=== PATIENT | male | born 1975 | race Caucasian/White ===

== ENCOUNTER 2019-08-07 11:32 | Emergency (ER) | payer BC, OTHER ==
[~2019-08-07] VITALS: Ht 177.8 cm; Wt 80.9 kg
--- NOTE | 2019-08-07 11:51 | NUR ---
THIS IS A 44 YO M W/ C/O LEFT THIGH PAIN AND SWELLING X2 WEEKS. DENIES INJURY. DENIES CP/SOB. DENIES PAIN W/ URINATION. RESP EVEN AND UNLABORED. PT IS TACHYCARDIC. ALL OTHER VS WDL. HO JOHNSON IN ROOM. PT IS RESTING ON GURNEY W/ FAMILY AT BEDSIDE AND CALL LIGHT IN REACH. DENIES FURTHER NEEDS AT THIS TIME. AWAITING ORDERS.
--- NOTE | 2019-08-07 11:54 | NUR ---
PT LEGS ELEVATED.
[2019-08-07 12:58] VITALS: BP 126/76
--- NOTE | 2019-08-07 12:58 | NUR ---
US IN ROOM.
--- NOTE | 2019-08-07 13:22 | NUR ---
PT RESTING ON Flexion W/ CALL LIGHT IN REACH AWAITING US RESULTS.
--- NOTE | 2019-08-07 13:34 | NUR ---
ALL TESTS RESULTED. PT IS UP FOR RECHECK AT THIS TIME.
--- NOTE | 2019-08-07 14:31 | NUR ---
Patient given discharge instructions and they have confirmed that they understand the instructions. Patient ambulatory w/ crutches.
== END 2019-08-07 14:33 | disposition home or self-care (01) ==
LOC: ED 12:45
DX: S76.112A Strain of left quadriceps muscle, fascia and tendon, initial encounter (principal); E11.9 Type 2 diabetes mellitus without complications; X58.XXXA Exposure to other specified factors, initial encounter; Y93.89 Activity, other specified; Y92.69 Other specified industrial and construction area as the place of occurrence of the external cause; Y99.0 Civilian activity done for income or pay
CPT/HCPCS: 29505; 99284

== ENCOUNTER 2019-08-16 18:33 | Inpatient (IN) | payer OTHER ==
[~2019-08-16] VITALS: Ht 177.8 cm; Wt 81.4 kg
--- NOTE | 2019-08-16 19:10 | NUR ---
THIGH ABSCESS X3 WKS, SENT BY DR VELASQUEZ. LABS AND IMAGING DONE TODAY SHOWING ABNORMALITIES, STS SUPPOSED TO BE ADMITTED
[2019-08-16] MEDS ORDERED: PIPERACILLIN/TAZO/PMX 3.375GM 50 ML ONE (19:20)
--- NOTE | 2019-08-16 19:22 | NUR ---
labs sent including bc x 2
[2019-08-16] MEDS ORDERED: VANCOMYCIN 1,800 MG in SODIUM CHLORIDE 0.9% 250 ML IV ONE (19:30)
[2019-08-16] MEDS ORDERED: SODIUM CHLORIDE 0.9%, 500ML IVBOLUS ONE (19:30)
[2019-08-16] MEDS ORDERED: VANCOMYCIN PER PHARMACY MC PRN ×2 (19:30→20:00)
[2019-08-16] MEDS ORDERED: PIPERACILLIN/TAZO/PMX 3.375GM 50 ML IV ONE (19:30)
[2019-08-16] MEDS ORDERED: ONDANSETRON ODT 4 MG PO PRN (20:00)
[2019-08-16] MEDS ORDERED: BISACODYL 10 MG SUPP PR PRN (20:00)
[2019-08-16] MEDS ORDERED: POLYETHYLENE GLYCOL 17 GM PACKET PO PRN (20:00)
--- NOTE | 2019-08-16 20:24 | NUR ---
report to jonna zamorano to room with tech
[2019-08-16 20:31] LABS: MEAN CORPUSCULAR HEMOGLOBIN 28.7 pg (27.5-34.5); MEAN CORPUSCULAR HGB CONC 33.1 g/dL (33.2-36.2); MEAN CORPUSCULAR VOLUME 86.8 fL (81-97); PLATELET COUNT 575 x10^3/uL (130-400); RED BLOOD COUNT 4.54 x10^6/uL (4.38-5.82); RED CELL DISTRIBUTION WIDTH 12.9 % (9.4-14.8)
[2019-08-16 20:41] LABS: ALBUMIN 2.5 g/dL (3.4-5.0); ANION GAP 13 mmol/L (5-15); CALCIUM 8.2 mg/dL (8.5-10.1); CHLORIDE 101 mmol/L (98-107)
[2019-08-16 20:44] LABS: ALANINE AMINOTRANSFERASE 13 U/L (12-78); ALKALINE PHOSPHATASE 84 U/L (45-117); BILIRUBIN,TOTAL 0.5 mg/dL (0.2-1.0); CREATININE 0.81 mg/dL (0.7-1.3); TOTAL PROTEIN 6.5 g/dL (6.4-8.2)
[2019-08-16 20:50] LABS: BASOPHILS # (AUTO) 0.01 x10^3/uL (0-0.1); BASOPHILS % (AUTO) 0 % (0-1); EOSINOPHILS # (AUTO) 0.02 x10^3/uL (0-0.4); EOSINOPHILS % (AUTO) 0 % (1-7); LYMPHOCYTES # (AUTO) 1.75 x10^3/uL (1-3.4); LYMPHOCYTES % (AUTO) 9 % (22-44); MD SCAN; MONOCYTES # (AUTO) 1.98 x10^3/uL (0.2-0.8); MONOCYTES % (AUTO) 10 % (2-9); NEUTROPHILS # (AUTO) 16.74 x10^3/uL (1.8-6.8); NEUTROPHILS % (AUTO) 82 % (42-75)
[2019-08-16] MEDS: HEPARIN 5,000 UNITS/ML, 1ML SQ SCH (21:15)
[2019-08-16] MEDS: SODIUM CHLORIDE 0.9% 1,000 ML IV SCH ×2 (21:15→22:03)
[2019-08-16] MEDS: PIPERACILLIN/TAZO/PMX 3.375GM 50 ML IV SCH (22:04)
[2019-08-16] MEDS: morphine SULFATE 10 MG/ML, 1ML IVPush PRN (22:10)
[2019-08-16] MEDS: INSULIN LISPRO 100 UNITS/ML, PEN SQ-INSULIN SCH (22:54)
[2019-08-16] MEDS ORDERED: PHARMACOKINETIC MONITORING MC PRN (23:00)
[2019-08-16] MEDS ORDERED: PHARMACOKINETIC CONSULTATION MC ONE (23:00)
[2019-08-16 23:02] VITALS: BP 145/88
[2019-08-17 02:46] VITALS: BP 144/83
[2019-08-17] MEDS: morphine SULFATE 10 MG/ML, 1ML IVPush PRN ×3 (02:57→15:44)
[2019-08-17] MEDS: PIPERACILLIN/TAZO/PMX 3.375GM 50 ML IV SCH ×4 (04:27→22:12)
[2019-08-17] MEDS: HEPARIN 5,000 UNITS/ML, 1ML SQ SCH ×3 (04:28→20:09)
[2019-08-17 05:40] LABS: MEAN CORPUSCULAR HEMOGLOBIN 28.8 pg (27.5-34.5); MEAN CORPUSCULAR HGB CONC 33.2 g/dL (33.2-36.2); MEAN CORPUSCULAR VOLUME 86.8 fL (81-97); MEAN PLATELET VOLUME 7.9 fL (7.4-10.4); PLATELET COUNT 521 x10^3/uL (130-400); RED BLOOD COUNT 4.44 x10^6/uL (4.38-5.82); RED CELL DISTRIBUTION WIDTH 12.6 % (9.4-14.8)
[2019-08-17 05:50] LABS: ANION GAP 16 mmol/L (5-15); CALCIUM 8.5 mg/dL (8.5-10.1); CHLORIDE 103 mmol/L (98-107); CREATININE 0.74 mg/dL (0.7-1.3)
[2019-08-17 05:53] LABS: MD YES
[2019-08-17 05:54] LABS: <RBC MORPHOLOGY> NORMAL; BAND#(MANUAL) 0.88 x10^3/uL; BANDS%(MANUAL) 4 % (0-7); EOS#(MANUAL) 0.44 x10^3/uL (0.0-0.4); EOS% (MANUAL) 2 % (1-7); LYMPH#(MANUAL) 1.54 x10^3/uL (1-3.4); LYMPHS% (MANUAL) 7 % (22-44); MONOS#(MANUAL) 1.98 x10^3/uL (0.3-2.7); MONOS% (MANUAL) 9 % (2-9); SEG#(MANUAL) 17.16 x10^3/uL (1.8-6.8); SEGS% (MANUAL) 78 % (42-75)
[2019-08-17 05:55] LABS: <PLATELET ESTIMATE> INCREASED; <PLT MORPHOLOGY> NORMAL PLT MORPH
[2019-08-17] MEDS: SODIUM CHLORIDE 0.9% 1,000 ML IV SCH ×2 (06:14→15:43)
[2019-08-17] MEDS ORDERED: ONDANSETRON 2MG/ML, 2ML IVPush PRN (08:00)
[2019-08-17] MEDS: SENNA/DOCUSATE TABLET PO SCH (08:32)
[2019-08-17] MEDS: VANCOMYCIN 1,600 MG in SODIUM CHLORIDE 0.9% 250 ML IV SCH ×2 (08:35→20:09)
[2019-08-17] MEDS: INSULIN LISPRO 100 UNITS/ML, PEN SQ-INSULIN SCH ×4 (08:40→20:40)
[2019-08-17] MEDS ORDERED: OXYcodone 5 MG/5 ML ORAL.SOL UDC ONE (10:57)
[2019-08-17] MEDS ORDERED: FENTANYL PF 100 MCG/2ML ONE (10:57)
[2019-08-17] MEDS: FENTANYL PF 100 MCG/2ML IV PRN ×2 (10:58→11:05)
[2019-08-17] MEDS ORDERED: ONDANSETRON 2MG/ML, 2ML IV PRN (11:00)
[2019-08-17] MEDS ORDERED: ONDANSETRON ODT 8 MG PO PRN (11:00)
[2019-08-17] MEDS ORDERED: ACETAMINOPHEN 325 MG TABLET PO PRN (11:00)
[2019-08-17] MEDS ORDERED: HYDROmorphone 2 MG/ML, 1ML IVPush PRN (11:00)
[2019-08-17] MEDS ORDERED: DIAZEPAM 5 MG/ML, 2ML IVPush PRN (11:00)
[2019-08-17] MEDS ORDERED: hydrALAzine 20 MG/ML, 1ML IV PRN (11:00)
[2019-08-17] MEDS ORDERED: HALOPERIDOL 5 MG/ML IV PRN (11:00)
[2019-08-17] MEDS ORDERED: LABETALOL 5MG/ML, 20ML IV PRN (11:00)
[2019-08-17] MEDS ORDERED: ALBUTEROL SULFATE 2.5 MG/3 ML NPPB PRN (11:00)
[2019-08-17] MEDS ORDERED: PROMETHAZINE 25 MG/ML, 1ML IV PRN (11:00)
[2019-08-17] MEDS ORDERED: MEPERIDINE/PF 25MG/ML,1ML IVPush PRN (11:00)
[2019-08-17] MEDS ORDERED: EPHEDRINE 50 MG/ML, 1ML IVPush PRN (11:00)
[2019-08-17] MEDS ORDERED: MIDAZOLAM 1 MG/ML, 2ML IV PRN (11:00)
[2019-08-17] MEDS ORDERED: OXYcodone 5 MG/5 ML ORAL.SOL UDC PO PRN (11:00)
[2019-08-17] MEDS ORDERED: PROMETHAZINE 12.5 MG SUPP PR PRN (11:00)
[2019-08-17] MEDS ORDERED: HYDROmorphone 1 MG/ML, 1ML INJ ONE (11:06)
[2019-08-17 12:11] VITALS: BP 135/84
[2019-08-17 19:13] VITALS: BP 144/82
[2019-08-17] MEDS ORDERED: INSULIN GLARGINE 100 UNITS/ML, PEN SQ-INSULIN SCH (21:00)
[2019-08-18 00:50] VITALS: BP 151/76
[2019-08-18] MEDS: SODIUM CHLORIDE 0.9% 1,000 ML IV SCH (00:53)
[2019-08-18] MEDS: HEPARIN 5,000 UNITS/ML, 1ML SQ SCH (04:00)
[2019-08-18] MEDS: PIPERACILLIN/TAZO/PMX 3.375GM 50 ML IV SCH ×4 (04:01→22:08)
[2019-08-18 06:38] LABS: MEAN CORPUSCULAR HEMOGLOBIN 28.9 pg (27.5-34.5); MEAN CORPUSCULAR VOLUME 87.5 fL (81-97); MEAN PLATELET VOLUME 8.2 fL (7.4-10.4); PLATELET COUNT 514 x10^3/uL (130-400); RED BLOOD COUNT 4.43 x10^6/uL (4.38-5.82); RED CELL DISTRIBUTION WIDTH 12.7 % (9.4-14.8)
[2019-08-18 06:49] LABS: ALBUMIN 2.3 g/dL (3.4-5.0); CALCIUM 8.7 mg/dL (8.5-10.1); CHLORIDE 103 mmol/L (98-107)
[2019-08-18 06:55] LABS: ALANINE AMINOTRANSFERASE 12 U/L (12-78); ALKALINE PHOSPHATASE 89 U/L (45-117); ANION GAP 13 mmol/L (5-15); CREATININE 0.82 mg/dL (0.7-1.3); TOTAL PROTEIN 6.8 g/dL (6.4-8.2)
[2019-08-18] MEDS: ACETAMINOPHEN 325 MG TABLET PO PRN ×3 (07:24→18:35)
[2019-08-18] MEDS: VANCOMYCIN 1,600 MG in SODIUM CHLORIDE 0.9% 250 ML IV SCH ×2 (07:24→20:07)
[2019-08-18] MEDS: SENNA/DOCUSATE TABLET PO SCH (07:26)
[2019-08-18 07:29] LABS: BASOPHILS # (AUTO) 0.05 x10^3/uL (0-0.1); BASOPHILS % (AUTO) 0 % (0-1); EOSINOPHILS # (AUTO) 0.02 x10^3/uL (0-0.4); EOSINOPHILS % (AUTO) 0 % (1-7); LYMPHOCYTES # (AUTO) 1.38 x10^3/uL (1-3.4); LYMPHOCYTES % (AUTO) 7 % (22-44); MD SCAN; MONOCYTES % (AUTO) 4 % (2-9); NEUTROPHILS # (AUTO) 18.89 x10^3/uL (1.8-6.8); NEUTROPHILS % (AUTO) 89 % (42-75)
[2019-08-18] MEDS: INSULIN LISPRO 100 UNITS/ML, PEN SQ-INSULIN SCH ×4 (07:35→20:07)
[2019-08-18 08:00] VITALS: BP 150/51
[2019-08-18] MEDS ORDERED: INSULIN GLARGINE 100 UNITS/ML, PEN SQ-INSULIN SCH ×2 (09:00→21:00)
[2019-08-18] MEDS: LISINOPRIL 10 MG TABLET PO SCH ×2 (09:35→20:11)
[2019-08-18] MEDS: ENOXAPARIN 40 MG/0.4 ML SQ SCH (09:35)
[2019-08-18] MEDS: CARVEDILOL 12.5 MG TABLET PO SCH ×2 (09:35→18:28)
[2019-08-18 16:08] VITALS: BP 118/75
[2019-08-18 19:47] VITALS: BP 124/69
[2019-08-18] MEDS ORDERED: SODIUM CHLORIDE 0.9% 1,000 ML IV SCH (19:50)
[2019-08-19 00:15] VITALS: BP 113/70
[2019-08-19] MEDS: PIPERACILLIN/TAZO/PMX 3.375GM 50 ML IV SCH ×2 (04:10→10:11)
[2019-08-19] MEDS: ACETAMINOPHEN 325 MG TABLET PO PRN ×4 (04:19→19:31)
[2019-08-19] MEDS: CARVEDILOL 12.5 MG TABLET PO SCH ×2 (05:45→17:14)
[2019-08-19 07:41] VITALS: BP 108/64
[2019-08-19] MEDS: INSULIN LISPRO 100 UNITS/ML, PEN SQ-INSULIN SCH ×4 (07:47→20:22)
[2019-08-19] MEDS: VANCOMYCIN 1,600 MG in SODIUM CHLORIDE 0.9% 250 ML IV SCH ×2 (07:47→08:16)
[2019-08-19] MEDS: ENOXAPARIN 40 MG/0.4 ML SQ SCH ×2 (07:47→08:15)
[2019-08-19] MEDS: SENNA/DOCUSATE TABLET PO SCH (07:48)
[2019-08-19] MEDS: INSULIN GLARGINE 100 UNITS/ML, PEN SQ-INSULIN SCH ×2 (07:48→20:21)
[2019-08-19] MEDS: LISINOPRIL 10 MG TABLET PO SCH ×2 (07:48→09:00)
[2019-08-19 08:20] LABS: ALANINE AMINOTRANSFERASE 11 U/L (12-78); ANION GAP 5 mmol/L (5-15); CALCIUM 8.3 mg/dL (8.5-10.1); CHLORIDE 106 mmol/L (98-107); CREATININE 0.63 mg/dL (0.7-1.3)
[2019-08-19 08:22] LABS: ALKALINE PHOSPHATASE 72 U/L (45-117); BILIRUBIN,TOTAL 0.5 mg/dL (0.2-1.0); TOTAL PROTEIN 6.2 g/dL (6.4-8.2); VANCOMYCIN,TROUGH 8.3 mcg/mL (5.0-10.0)
[2019-08-19 08:27] LABS: MEAN CORPUSCULAR HEMOGLOBIN 28.7 pg (27.5-34.5); MEAN CORPUSCULAR HGB CONC 33.3 g/dL (33.2-36.2); MEAN CORPUSCULAR VOLUME 86.2 fL (81-97); MEAN PLATELET VOLUME 7.5 fL (7.4-10.4); PLATELET COUNT 563 x10^3/uL (130-400); RED BLOOD COUNT 4.31 x10^6/uL (4.38-5.82); RED CELL DISTRIBUTION WIDTH 12.7 % (9.4-14.8)
[2019-08-19 10:06] LABS: BASOPHILS % (AUTO) 0 % (0-1); EOSINOPHILS % (AUTO) 1 % (1-7); LYMPHOCYTES # (AUTO) 1.31 x10^3/uL (1-3.4); LYMPHOCYTES % (AUTO) 10 % (22-44); MD SCAN; MONOCYTES # (AUTO) 0.59 x10^3/uL (0.2-0.8); MONOCYTES % (AUTO) 5 % (2-9); NEUTROPHILS # (AUTO) 10.72 x10^3/uL (1.8-6.8); NEUTROPHILS % (AUTO) 84 % (42-75)
[2019-08-19] MEDS: CEFAZOLIN 2,000 MG in SODIUM CHLORIDE 0.9% 50 ML IV SCH ×2 (13:14→21:08)
[2019-08-19 14:34] VITALS: BP 116/73
[2019-08-19] MEDS ORDERED: VANCOMYCIN 1,500 MG in SODIUM CHLORIDE 0.9% 250 ML IV SCH (17:00)
[2019-08-19 19:18] VITALS: BP 123/76
[2019-08-19] MEDS ORDERED: SODIUM CHLORIDE 0.9% 1,000 ML IV SCH (19:50)
[2019-08-19] MEDS ORDERED: PNEUMOC 13-VALENT VACC, 0.5 ML IM-VACC ONE (20:00)
[2019-08-19] MEDS ORDERED: FLU VACC QS2019-20 36MOS UP/PF 0.5 ML IM-VACC ONE (20:00)
[2019-08-20 01:45] VITALS: BP 115/71
[2019-08-20] MEDS: ACETAMINOPHEN 325 MG TABLET PO PRN ×2 (03:17→16:38)
[2019-08-20] MEDS: CARVEDILOL 12.5 MG TABLET PO SCH (05:21)
[2019-08-20] MEDS: CEFAZOLIN 2,000 MG in SODIUM CHLORIDE 0.9% 50 ML IV SCH ×3 (05:21→20:42)
[2019-08-20 06:27] LABS: BASOPHILS % (AUTO) 0 % (0-1); EOSINOPHILS # (AUTO) 0.04 x10^3/uL (0-0.4); EOSINOPHILS % (AUTO) 0 % (1-7); LYMPHOCYTES # (AUTO) 1.85 x10^3/uL (1-3.4); LYMPHOCYTES % (AUTO) 17 % (22-44); MD NO; MEAN CORPUSCULAR HEMOGLOBIN 28.6 pg (27.5-34.5); MEAN CORPUSCULAR HGB CONC 33.5 g/dL (33.2-36.2); MEAN CORPUSCULAR VOLUME 85.2 fL (81-97); MEAN PLATELET VOLUME 7.8 fL (7.4-10.4); MONOCYTES # (AUTO) 0.86 x10^3/uL (0.2-0.8); MONOCYTES % (AUTO) 8 % (2-9); NEUTROPHILS # (AUTO) 8.07 x10^3/uL (1.8-6.8); NEUTROPHILS % (AUTO) 75 % (42-75); PLATELET COUNT 550 x10^3/uL (130-400); RED BLOOD COUNT 4.22 x10^6/uL (4.38-5.82); RED CELL DISTRIBUTION WIDTH 12.8 % (9.4-14.8)
[2019-08-20 06:30] LABS: ALANINE AMINOTRANSFERASE 11 U/L (12-78); ANION GAP 6 mmol/L (5-15); CALCIUM 8.2 mg/dL (8.5-10.1); CHLORIDE 108 mmol/L (98-107); CREATININE 0.59 mg/dL (0.7-1.3)
[2019-08-20 06:37] LABS: ALKALINE PHOSPHATASE 67 U/L (45-117); BILIRUBIN,TOTAL 0.2 mg/dL (0.2-1.0); TOTAL PROTEIN 6.1 g/dL (6.4-8.2)
[2019-08-20 06:57] LABS: HCT (SEDRATE) 35.9 % (39.2-51.8)
[2019-08-20] MEDS: INSULIN LISPRO 100 UNITS/ML, PEN SQ-INSULIN SCH ×4 (07:00→20:40)
[2019-08-20] MEDS ORDERED: POTASSIUM CHLORIDE 40 MEQ in SODIUM CHLORIDE 0.9% 500 ML IV ONE (07:30)
[2019-08-20 07:41] VITALS: BP 110/67
[2019-08-20] MEDS ORDERED: POTASSIUM CHLORIDE 20 MEQ TAB.ER.PRT PO SCH (08:00)
[2019-08-20] MEDS: ENOXAPARIN 40 MG/0.4 ML SQ SCH (08:15)
[2019-08-20] MEDS: POTASSIUM CHLORIDE 20 MEQ TAB.ER.PRT PO SCH ×2 (08:15→16:38)
[2019-08-20] MEDS: LISINOPRIL 10 MG TABLET PO SCH (08:16)
[2019-08-20] MEDS: SENNA/DOCUSATE TABLET PO SCH (08:17)
[2019-08-20] MEDS: INSULIN GLARGINE 100 UNITS/ML, PEN SQ-INSULIN SCH ×2 (08:17→20:40)
[2019-08-20] MEDS: morphine SULFATE 10 MG/ML, 1ML IVPush PRN (11:28)
[2019-08-20 13:55] VITALS: BP 141/89
[2019-08-20] MEDS: CARVEDILOL 6.25 MG TABLET PO SCH (18:21)
[2019-08-20 19:47] VITALS: BP 124/78
[2019-08-21 00:55] VITALS: BP 147/88
[2019-08-21] MEDS: ACETAMINOPHEN 325 MG TABLET PO PRN ×4 (01:03→23:04)
[2019-08-21] MEDS: CEFAZOLIN 2,000 MG in SODIUM CHLORIDE 0.9% 50 ML IV SCH ×3 (05:20→20:37)
[2019-08-21] MEDS: CARVEDILOL 6.25 MG TABLET PO SCH ×2 (05:21→17:15)
[2019-08-21 06:16] LABS: BASOPHILS # (AUTO) 0.03 x10^3/uL (0-0.1); BASOPHILS % (AUTO) 0 % (0-1); EOSINOPHILS # (AUTO) 0.29 x10^3/uL (0-0.4); EOSINOPHILS % (AUTO) 3 % (1-7); LYMPHOCYTES # (AUTO) 2.07 x10^3/uL (1-3.4); LYMPHOCYTES % (AUTO) 19 % (22-44); MD NO; MEAN CORPUSCULAR HEMOGLOBIN 28.4 pg (27.5-34.5); MEAN CORPUSCULAR HGB CONC 32.9 g/dL (33.2-36.2); MEAN CORPUSCULAR VOLUME 86.3 fL (81-97); MEAN PLATELET VOLUME 7.8 fL (7.4-10.4); MONOCYTES # (AUTO) 0.59 x10^3/uL (0.2-0.8); MONOCYTES % (AUTO) 6 % (2-9); NEUTROPHILS % (AUTO) 72 % (42-75); PLATELET COUNT 573 x10^3/uL (130-400); RED BLOOD COUNT 4.34 x10^6/uL (4.38-5.82); RED CELL DISTRIBUTION WIDTH 12.8 % (9.4-14.8)
[2019-08-21 06:24] LABS: ALBUMIN 2.1 g/dL (3.4-5.0); ANION GAP 6 mmol/L (5-15); CALCIUM 8.5 mg/dL (8.5-10.1); CHLORIDE 102 mmol/L (98-107)
[2019-08-21 06:28] LABS: ALANINE AMINOTRANSFERASE 13 U/L (12-78); ALKALINE PHOSPHATASE 74 U/L (45-117); BILIRUBIN,TOTAL 0.2 mg/dL (0.2-1.0); CREATININE 0.73 mg/dL (0.7-1.3); TOTAL PROTEIN 6.2 g/dL (6.4-8.2)
[2019-08-21 07:43] VITALS: BP 117/78
[2019-08-21] MEDS: ENOXAPARIN 40 MG/0.4 ML SQ SCH (07:48)
[2019-08-21] MEDS: INSULIN LISPRO 100 UNITS/ML, PEN SQ-INSULIN SCH ×4 (07:49→21:37)
[2019-08-21] MEDS: SENNA/DOCUSATE TABLET PO SCH (08:45)
[2019-08-21] MEDS: LISINOPRIL 10 MG TABLET PO SCH (08:45)
[2019-08-21] MEDS: INSULIN GLARGINE 100 UNITS/ML, PEN SQ-INSULIN SCH ×2 (08:45→21:38)
[2019-08-21 13:22] VITALS: BP 124/76
[2019-08-21 19:09] VITALS: BP 121/78
[2019-08-22 01:57] VITALS: BP 112/70
[2019-08-22 05:05] VITALS: BP 129/82
[2019-08-22] MEDS: CEFAZOLIN 2,000 MG in SODIUM CHLORIDE 0.9% 50 ML IV SCH ×3 (05:07→22:28)
[2019-08-22] MEDS: CARVEDILOL 6.25 MG TABLET PO SCH ×2 (05:07→19:09)
[2019-08-22] MEDS: ACETAMINOPHEN 325 MG TABLET PO PRN ×4 (05:34→21:41)
[2019-08-22 06:00] LABS: BASOPHILS # (AUTO) 0.04 x10^3/uL (0-0.1); MD NO
[2019-08-22 06:09] LABS: CALCIUM 8.8 mg/dL (8.5-10.1); CHLORIDE 102 mmol/L (98-107)
[2019-08-22 06:21] LABS: ALANINE AMINOTRANSFERASE 15 U/L (12-78); ALBUMIN 2.3 g/dL (3.4-5.0); ALKALINE PHOSPHATASE 75 U/L (45-117); ANION GAP 5 mmol/L (5-15); BILIRUBIN,TOTAL 0.2 mg/dL (0.2-1.0); CREATININE 0.82 mg/dL (0.7-1.3); TOTAL PROTEIN 6.7 g/dL (6.4-8.2)
[2019-08-22 06:32] LABS: BASOPHILS % (AUTO) 0 % (0-1); EOSINOPHILS # (AUTO) 0.26 x10^3/uL (0-0.4); EOSINOPHILS % (AUTO) 3 % (1-7); LYMPHOCYTES % (AUTO) 24 % (22-44); MEAN CORPUSCULAR HEMOGLOBIN 28.4 pg (27.5-34.5); MEAN CORPUSCULAR HGB CONC 32.9 g/dL (33.2-36.2); MEAN CORPUSCULAR VOLUME 86.2 fL (81-97); MEAN PLATELET VOLUME 7.7 fL (7.4-10.4); MONOCYTES # (AUTO) 0.74 x10^3/uL (0.2-0.8); MONOCYTES % (AUTO) 9 % (2-9); NEUTROPHILS # (AUTO) 5.43 x10^3/uL (1.8-6.8); NEUTROPHILS % (AUTO) 64 % (42-75); PLATELET COUNT 634 x10^3/uL (130-400); RED BLOOD COUNT 4.76 x10^6/uL (4.38-5.82); RED CELL DISTRIBUTION WIDTH 13.1 % (9.4-14.8)
[2019-08-22 06:35] LABS: HCT (SEDRATE) 41.1 % (39.2-51.8)
[2019-08-22 08:02] VITALS: BP 119/80
[2019-08-22] MEDS: INSULIN LISPRO 100 UNITS/ML, PEN SQ-INSULIN SCH ×4 (10:44→21:08)
[2019-08-22] MEDS: LISINOPRIL 10 MG TABLET PO SCH (10:45)
[2019-08-22] MEDS: SENNA/DOCUSATE TABLET PO SCH (10:45)
[2019-08-22] MEDS: ENOXAPARIN 40 MG/0.4 ML SQ SCH (10:46)
[2019-08-22] MEDS: INSULIN GLARGINE 100 UNITS/ML, PEN SQ-INSULIN SCH ×2 (10:50→21:08)
[2019-08-22 13:21] VITALS: BP 131/86
[2019-08-22 20:02] VITALS: BP 126/87
[2019-08-23 01:28] VITALS: BP 137/89
[2019-08-23] MEDS: ACETAMINOPHEN 325 MG TABLET PO PRN ×2 (01:42→20:29)
[2019-08-23 04:31] LABS: BASOPHILS # (AUTO) 0.01 x10^3/uL (0-0.1); BASOPHILS % (AUTO) 0 % (0-1); EOSINOPHILS # (AUTO) 0.22 x10^3/uL (0-0.4); EOSINOPHILS % (AUTO) 2 % (1-7); LYMPHOCYTES # (AUTO) 1.88 x10^3/uL (1-3.4); LYMPHOCYTES % (AUTO) 21 % (22-44); MD NO; MEAN CORPUSCULAR HEMOGLOBIN 28.1 pg (27.5-34.5); MEAN CORPUSCULAR HGB CONC 32.7 g/dL (33.2-36.2); MEAN CORPUSCULAR VOLUME 86.2 fL (81-97); MEAN PLATELET VOLUME 7.4 fL (7.4-10.4); MONOCYTES # (AUTO) 0.82 x10^3/uL (0.2-0.8); MONOCYTES % (AUTO) 9 % (2-9); NEUTROPHILS % (AUTO) 68 % (42-75); PLATELET COUNT 622 x10^3/uL (130-400); RED BLOOD COUNT 4.68 x10^6/uL (4.38-5.82)
[2019-08-23 06:02] VITALS: BP 128/86
[2019-08-23] MEDS: CEFAZOLIN 2,000 MG in SODIUM CHLORIDE 0.9% 50 ML IV SCH ×2 (06:03→16:10)
[2019-08-23] MEDS: CARVEDILOL 6.25 MG TABLET PO SCH ×2 (06:03→17:21)
[2019-08-23] MEDS ORDERED: OXYcodone/APAP 5/325MG TABLET PO PRN (08:00)
[2019-08-23] MEDS: INSULIN LISPRO 100 UNITS/ML, PEN SQ-INSULIN SCH ×4 (08:12→21:27)
[2019-08-23] MEDS: SENNA/DOCUSATE TABLET PO SCH (08:14)
[2019-08-23] MEDS: ENOXAPARIN 40 MG/0.4 ML SQ SCH (08:14)
[2019-08-23] MEDS: LISINOPRIL 10 MG TABLET PO SCH (08:14)
[2019-08-23] MEDS: INSULIN GLARGINE 100 UNITS/ML, PEN SQ-INSULIN SCH ×2 (08:17→21:26)
[2019-08-23 14:00] VITALS: BP 124/82
[2019-08-23 19:38] VITALS: BP 147/88
[2019-08-24] MEDS: CEFAZOLIN 2,000 MG in SODIUM CHLORIDE 0.9% 50 ML IV SCH ×2 (00:11→08:14)
[2019-08-24 00:35] VITALS: BP 138/92
[2019-08-24] MEDS: ACETAMINOPHEN 325 MG TABLET PO PRN (00:51)
[2019-08-24 05:45] VITALS: BP 146/88
[2019-08-24] MEDS: CARVEDILOL 6.25 MG TABLET PO SCH (05:46)
[2019-08-24] MEDS: ENOXAPARIN 40 MG/0.4 ML SQ SCH (08:14)
[2019-08-24] MEDS: LISINOPRIL 10 MG TABLET PO SCH (08:15)
[2019-08-24] MEDS: INSULIN LISPRO 100 UNITS/ML, PEN SQ-INSULIN SCH ×2 (08:17→11:41)
[2019-08-24] MEDS: SENNA/DOCUSATE TABLET PO SCH (08:18)
[2019-08-24 08:21] VITALS: BP 104/69
[2019-08-24] MEDS ORDERED: CARV12.52 PO (08:58)
[2019-08-24] MEDS ORDERED: LISI-167 PO (08:58)
[2019-08-24] MEDS ORDERED: INSU100I11 SQ-INSULIN (08:58)
[2019-08-24] MEDS ORDERED: INSU100I13 SQ-INSULIN (08:58)
[2019-08-24] MEDS ORDERED: ERTAPENEM 1 GM in SODIUM CHLORIDE 0.9% 50 ML IV SCH (09:00)
[2019-08-24] MEDS ORDERED: INSULIN GLARGINE 100 UNITS/ML, PEN SQ-INSULIN SCH (09:00)
[2019-08-24] MEDS ORDERED: CARVEDILOL 12.5 MG TABLET PO SCH (18:00)
== END 2019-08-24 12:00 | disposition home or self-care (01) | DRG 872 ==
LOC: ED 20:28 → 3N 20:51
PROVIDERS: ADMIT Internal Medicine; ATTEND Internal Medicine
PROC: 0Y9D0ZZ Drainage of Left Upper Leg, Open Approach (ICD-10-PCS; 2019-08-17)
PROC: 02HV33Z Insertion of Infusion Device into Superior Vena Cava, Percutaneous Approach (ICD-10-PCS; principal; 2019-08-22)
PROC: B5181ZA Fluoroscopy of Superior Vena Cava using Low Osmolar Contrast, Guidance (ICD-10-PCS; 2019-08-22)
PROC: B548ZZA Ultrasonography of Superior Vena Cava, Guidance (ICD-10-PCS; 2019-08-22)
DX: A41.9 Sepsis, unspecified organism (principal); E87.2 Acidosis; L02.415 Cutaneous abscess of right lower limb; E87.1 Hypo-osmolality and hyponatremia; B95.62 Methicillin resistant Staphylococcus aureus infection as the cause of diseases classified elsewhere; E11.65 Type 2 diabetes mellitus with hyperglycemia; E87.6 Hypokalemia; I10 Essential (primary) hypertension; Z79.4 Long term (current) use of insulin; Z91.19 Patient's noncompliance with other medical treatment and regimen
CPT/HCPCS: 36415; 36573; 80048; 80053; 80202; 82962; 83036; 83605; 84145; 85025; 85651; 86140; 87040; 93005; 93306; 96365; 99285; G0378; J0690; J1170; J1335; J1644; J1650; J2405; J2543; J3010; J3370; J3480; Q0162; C1751; J1815; J2270; J7030; J7040; J7050

== ENCOUNTER → 2019-08-16 | Outpatient (CLI) | payer OTHER ==
[~2019-08-16] MED LIST: FENTANYL PF 250 MCG/5ML ONE; GADOTERATE 7.5 MMOL/15 ML SYR ONE; MIDAZOLAM 1 MG/ML, 2ML ONE; ONDANSETRON 2MG/ML, 2ML ONE; PROPOFOL 10 MG/ML, 20ML ONE; ROCURONIUM 10MG/ML,5ML ONE; SUCCINYLCHOLINE 20 MG/ML, 10ML ONE
[2019-08-16 13:39] LABS: MEAN CORPUSCULAR HEMOGLOBIN 28.5 pg (27.5-34.5); MEAN CORPUSCULAR VOLUME 86.3 fL (81-97); MEAN PLATELET VOLUME 7.8 fL (7.4-10.4); PLATELET COUNT 643 x10^3/uL (130-400); RED BLOOD COUNT 5.14 x10^6/uL (4.38-5.82); RED CELL DISTRIBUTION WIDTH 13.1 % (9.4-14.8)
[2019-08-16 13:42] LABS: HCT (SEDRATE) 44.5 % (39.2-51.8)
[2019-08-16 14:04] LABS: BASOPHILS # (AUTO) 0.05 x10^3/uL (0-0.1); BASOPHILS % (AUTO) 0 % (0-1); EOSINOPHILS # (AUTO) 0.02 x10^3/uL (0-0.4); EOSINOPHILS % (AUTO) 0 % (1-7); LYMPHOCYTES % (AUTO) 6 % (22-44); MD SCAN; MONOCYTES # (AUTO) 1.85 x10^3/uL (0.2-0.8); MONOCYTES % (AUTO) 9 % (2-9); NEUTROPHILS # (AUTO) 17.92 x10^3/uL (1.8-6.8); NEUTROPHILS % (AUTO) 85 % (42-75)
== END | disposition home or self-care (01) ==
LOC: RAD 13:18
PROVIDERS: ATTEND Physician Assistant Surgical
DX: R60.0 Localized edema (principal); M25.552 Pain in left hip; E11.9 Type 2 diabetes mellitus without complications; G40.909 Epilepsy, unspecified, not intractable, without status epilepticus
CPT/HCPCS: 36415; 73720; 85025; 85651; 86140; 93971; A9575; 87070; 87075; 87077; 87102; 87147; 87186; 87205; J2250; J2405; J2704; J3010; J0330

== ENCOUNTER 2020-07-24 10:09 | Inpatient (IN) | payer OTHER ==
[~2020-07-24] VITALS: Ht 177.8 cm; Wt 96.1 kg
[~2020-07-24 10:09] MED LIST changes: +CARV12.52 PO; -FENTANYL PF 250 MCG/5ML ONE; -GADOTERATE 7.5 MMOL/15 ML SYR ONE; +INSU100I11 SQ-INSULIN; +INSU100I13 SQ-INSULIN; +LISI-167 PO; -MIDAZOLAM 1 MG/ML, 2ML ONE; -ONDANSETRON 2MG/ML, 2ML ONE; -PROPOFOL 10 MG/ML, 20ML ONE; -ROCURONIUM 10MG/ML,5ML ONE; -SUCCINYLCHOLINE 20 MG/ML, 10ML ONE
--- NOTE | 2020-07-24 10:41 | NUR ---
PT TO XR
[2020-07-24 10:44] LABS: BASOPHILS % (AUTO) 0 % (0-1); EOSINOPHILS % (AUTO) 0 % (1-7); LYMPHOCYTES % (AUTO) 9 % (22-44); MEAN CORPUSCULAR HEMOGLOBIN 28.9 pg (27.5-34.5); MEAN CORPUSCULAR HGB CONC 33.8 g/dL (33.2-36.2); MEAN PLATELET VOLUME 8.8 fL (7.4-10.4); MONOCYTES % (AUTO) 8 % (2-9); NEUTROPHILS % (AUTO) 82 % (42-75); PLATELET COUNT 364 x10^3/uL (130-400); RED BLOOD COUNT 5.35 x10^6/uL (4.38-5.82); RED CELL DISTRIBUTION WIDTH 13.3 % (9.4-14.8)
[2020-07-24 10:56] LABS: ALANINE AMINOTRANSFERASE 17 U/L (12-78); ALBUMIN 3.9 g/dL (3.4-5.0); ANION GAP 10 mmol/L (5-15); CHLORIDE 102 mmol/L (98-107); CREATININE 1.38 mg/dL (0.7-1.3)
[2020-07-24 10:58] LABS: ALKALINE PHOSPHATASE 95 U/L (45-117); BILIRUBIN,TOTAL 0.8 mg/dL (0.2-1.0)
[2020-07-24 11:10] LABS: MD SCAN
[2020-07-24] MEDS ORDERED: SODIUM CHLORIDE FLUSH 10ML SYR IVF ONE (11:30)
[2020-07-24] MEDS ORDERED: AMPICILLIN/SULBACTAM 3 GM in SODIUM CHLORIDE 0.9% 100 ML IV ONE (11:30)
[2020-07-24] MEDS ORDERED: SODIUM CHLORIDE FLUSH 10ML SYR IVF PRN (11:30)
[2020-07-24] MEDS ORDERED: SODIUM CHLORIDE 0.9% 1,000ML IVBOLUS ONE (11:30)
--- NOTE | 2020-07-24 12:23 | NUR ---
attempted to call Dr. Bailon [facility] [phone] for a med list. pt does not know his medications.
[2020-07-24] MEDS: CEFAZOLIN 2,000 MG in SODIUM CHLORIDE 0.9% 50 ML IV SCH ×2 (14:05→21:34)
[2020-07-24 14:44] VITALS: BP 139/88
[2020-07-24] MEDS: SODIUM CHLORIDE 0.9% 1,000 ML IV SCH ×2 (15:16→21:37)
[2020-07-24] MEDS: HEPARIN 5,000 UNITS/ML, 1ML SQ SCH ×2 (15:22→23:11)
[2020-07-24] MEDS: INSULIN LISPRO 100 UNITS/ML, PEN SQ-INSULIN SCH ×2 (18:33→21:36)
[2020-07-24 20:17] VITALS: BP 126/73
[2020-07-24] MEDS: ACETAMINOPHEN 325 MG TABLET PO PRN (20:43)
[2020-07-24] MEDS: INSULIN GLARGINE 100 UNITS/ML, PEN SQ-INSULIN SCH (21:37)
[2020-07-25 01:48] VITALS: BP 119/68
[2020-07-25] MEDS: SODIUM CHLORIDE 0.9% 1,000 ML IV SCH ×2 (04:40→11:49)
[2020-07-25 05:28] LABS: BASOPHILS % (AUTO) 1 % (0-1); EOSINOPHILS % (AUTO) 1 % (1-7); LYMPHOCYTES % (AUTO) 23 % (22-44); MEAN CORPUSCULAR HGB CONC 34.2 g/dL (33.2-36.2); MEAN PLATELET VOLUME 8.7 fL (7.4-10.4); MONOCYTES % (AUTO) 12 % (2-9); NEUTROPHILS % (AUTO) 64 % (42-75); PLATELET COUNT 326 x10^3/uL (130-400); RED BLOOD COUNT 4.69 x10^6/uL (4.38-5.82); RED CELL DISTRIBUTION WIDTH 12.9 % (9.4-14.8)
[2020-07-25 05:29] LABS: MD NO
[2020-07-25 05:45] LABS: ANION GAP 5 mmol/L (5-15); CALCIUM 8.1 mg/dL (8.5-10.1); CHLORIDE 110 mmol/L (98-107); CREATININE 0.79 mg/dL (0.7-1.3)
[2020-07-25] MEDS: HEPARIN 5,000 UNITS/ML, 1ML SQ SCH ×3 (06:43→23:00)
[2020-07-25] MEDS: CEFAZOLIN 2,000 MG in SODIUM CHLORIDE 0.9% 50 ML IV SCH ×2 (06:43→14:24)
[2020-07-25] MEDS: INSULIN LISPRO 100 UNITS/ML, PEN SQ-INSULIN SCH ×4 (06:43→21:58)
[2020-07-25 07:47] VITALS: BP 135/79
[2020-07-25] MEDS: LISINOPRIL 20 MG TABLET PO SCH (09:28)
[2020-07-25] MEDS: INSULIN GLARGINE 100 UNITS/ML, PEN SQ-INSULIN SCH ×2 (09:29→21:58)
[2020-07-25 13:40] VITALS: BP 118/74
[2020-07-25] MEDS ORDERED: POTASSIUM CHLORIDE 20 MEQ TAB.ER.PRT PO ONE (14:00)
[2020-07-25 20:09] VITALS: BP 124/71
[2020-07-25] MEDS ORDERED: CEFAZOLIN 2,000 MG in DEXTROSE 5% 50 ML IV SCH (22:00)
[2020-07-25] MEDS ORDERED: CEFAZOLIN 2,000 MG in SODIUM CHLORIDE 0.9% 50 ML IV ONE (22:00)
[2020-07-26 01:43] VITALS: BP 119/70
[2020-07-26 05:19] LABS: HCT (SEDRATE) 39.2 % (39.2-51.8)
[2020-07-26 05:25] LABS: BASOPHILS % (AUTO) 1 % (0-1); EOSINOPHILS % (AUTO) 0 % (1-7); LYMPHOCYTES % (AUTO) 21 % (22-44); MEAN CORPUSCULAR HEMOGLOBIN 29.1 pg (27.5-34.5); MEAN CORPUSCULAR HGB CONC 34.4 g/dL (33.2-36.2); MEAN PLATELET VOLUME 8.3 fL (7.4-10.4); MONOCYTES % (AUTO) 11 % (2-9); NEUTROPHILS % (AUTO) 68 % (42-75); PLATELET COUNT 330 x10^3/uL (130-400); RED BLOOD COUNT 4.54 x10^6/uL (4.38-5.82)
[2020-07-26 05:30] LABS: ANION GAP 4 mmol/L (5-15); CALCIUM 8.2 mg/dL (8.5-10.1); CHLORIDE 110 mmol/L (98-107)
[2020-07-26 05:33] LABS: MD NO
[2020-07-26 05:50] LABS: CREATININE 0.81 mg/dL (0.7-1.3)
[2020-07-26] MEDS ORDERED: CEFAZOLIN 2,000 MG in DEXTROSE 5% 50 ML IV SCH (06:00)
[2020-07-26] MEDS: HEPARIN 5,000 UNITS/ML, 1ML SQ SCH ×3 (06:29→22:24)
[2020-07-26] MEDS: CEFAZOLIN PMX 2GM/50ML 50 ML IVPB SCH ×3 (06:29→22:18)
[2020-07-26] MEDS: INSULIN LISPRO 100 UNITS/ML, PEN SQ-INSULIN SCH ×4 (06:35→22:19)
[2020-07-26 08:11] VITALS: BP 104/69
[2020-07-26] MEDS: LISINOPRIL 20 MG TABLET PO SCH (08:29)
[2020-07-26] MEDS: INSULIN GLARGINE 100 UNITS/ML, PEN SQ-INSULIN SCH (09:00)
[2020-07-26] MEDS ORDERED: INSULIN GLARGINE 100 UNITS/ML, PEN SQ-INSULIN SCH (09:30)
[2020-07-26] MEDS ORDERED: INSULIN GLARGINE 100 UNITS/ML, PEN SQ-INSULIN ONE (09:30)
[2020-07-26] MEDS ORDERED: POTASSIUM CHLORIDE 20 MEQ TAB.ER.PRT PO ONE (11:30)
[2020-07-26 12:31] VITALS: BP 129/82
[2020-07-26] MEDS ORDERED: SODIUM CHLORIDE 0.9% 1,000 ML IV SCH (13:30)
[2020-07-26] MEDS: ACETAMINOPHEN 325 MG TABLET PO PRN (15:52)
[2020-07-26 19:14] VITALS: BP 141/80
[2020-07-27 00:23] VITALS: BP 125/76
[2020-07-27 04:53] LABS: BASOPHILS % (AUTO) 0 % (0-1); EOSINOPHILS % (AUTO) 2 % (1-7); LYMPHOCYTES % (AUTO) 26 % (22-44); MD NO; MEAN CORPUSCULAR HEMOGLOBIN 28.9 pg (27.5-34.5); MEAN CORPUSCULAR HGB CONC 33.8 g/dL (33.2-36.2); MEAN PLATELET VOLUME 8.3 fL (7.4-10.4); MONOCYTES % (AUTO) 11 % (2-9); NEUTROPHILS % (AUTO) 61 % (42-75); PLATELET COUNT 345 x10^3/uL (130-400); RED BLOOD COUNT 4.64 x10^6/uL (4.38-5.82)
[2020-07-27 05:04] LABS: CALCIUM 8.4 mg/dL (8.5-10.1); CHLORIDE 108 mmol/L (98-107)
[2020-07-27 05:06] LABS: CREATININE 0.94 mg/dL (0.7-1.3)
[2020-07-27 05:13] LABS: ANION GAP 3 mmol/L (5-15)
[2020-07-27] MEDS: HEPARIN 5,000 UNITS/ML, 1ML SQ SCH ×3 (06:19→22:52)
[2020-07-27] MEDS: CEFAZOLIN PMX 2GM/50ML 50 ML IVPB SCH ×3 (06:19→21:30)
[2020-07-27 06:32] VITALS: BP 121/73
[2020-07-27] MEDS: INSULIN LISPRO 100 UNITS/ML, PEN SQ-INSULIN SCH ×4 (07:26→21:30)
[2020-07-27] MEDS: LISINOPRIL 20 MG TABLET PO SCH (08:25)
[2020-07-27] MEDS ORDERED: INSULIN GLARGINE 100 UNITS/ML, PEN SQ-INSULIN SCH (09:00)
[2020-07-27 12:40] VITALS: BP 123/82
[2020-07-27] MEDS: INSULIN GLARGINE 100 UNITS/ML, PEN SQ-INSULIN SCH (21:29)
[2020-07-27 22:05] VITALS: BP 121/74
[2020-07-28 03:19] VITALS: BP 111/69
[2020-07-28 05:45] LABS: BASOPHILS % (AUTO) 1 % (0-1); EOSINOPHILS % (AUTO) 2 % (1-7); LYMPHOCYTES % (AUTO) 29 % (22-44); MEAN CORPUSCULAR HEMOGLOBIN 29.5 pg (27.5-34.5); MEAN CORPUSCULAR HGB CONC 34.8 g/dL (33.2-36.2); MEAN PLATELET VOLUME 8.5 fL (7.4-10.4); MONOCYTES % (AUTO) 11 % (2-9); NEUTROPHILS % (AUTO) 58 % (42-75); PLATELET COUNT 398 x10^3/uL (130-400); RED BLOOD COUNT 4.69 x10^6/uL (4.38-5.82); RED CELL DISTRIBUTION WIDTH 13.2 % (9.4-14.8)
[2020-07-28 05:46] LABS: MD NO
[2020-07-28] MEDS: CEFAZOLIN PMX 2GM/50ML 50 ML IVPB SCH (05:58)
[2020-07-28 06:01] LABS: C-REACTIVE PROTEIN, QUANT 4.5 mg/dL (0.02-0.49)
[2020-07-28] MEDS: HEPARIN 5,000 UNITS/ML, 1ML SQ SCH (06:26)
[2020-07-28] MEDS: INSULIN LISPRO 100 UNITS/ML, PEN SQ-INSULIN SCH ×2 (06:28→10:49)
[2020-07-28 07:20] VITALS: BP 130/82
[2020-07-28] MEDS: LISINOPRIL 20 MG TABLET PO SCH (08:44)
[2020-07-28] MEDS: INSULIN GLARGINE 100 UNITS/ML, PEN SQ-INSULIN SCH (09:02)
[2020-07-28] MEDS ORDERED: INSU100I13 SQ-INSULIN (10:02)
[2020-07-28] MEDS ORDERED: ONDA4TAB7 PO (10:02)
[2020-07-28] MEDS ORDERED: INSU100I11 SQ-INSULIN (10:02)
[2020-07-28] MEDS ORDERED: HYDR-3241 PO (10:02)
[2020-07-28] MEDS ORDERED: LISI-170 PO (10:02)
[2020-07-28] MEDS ORDERED: AMOX1TAB64 PO (10:38)
== END 2020-07-28 12:45 | disposition home or self-care (01) | DRG 871 ==
LOC: ED 11:33 → EDIP 11:55 → 4NE 14:16 → DCLOUNGE 07-28 12:31
PROVIDERS: ADMIT Hospitalist; ATTEND Internal Medicine
DX: A41.9 Sepsis, unspecified organism (principal); N17.0 Acute kidney failure with tubular necrosis; L03.116 Cellulitis of left lower limb; B95.1 Streptococcus, group B, as the cause of diseases classified elsewhere; B95.61 Methicillin susceptible Staphylococcus aureus infection as the cause of diseases classified elsewhere; E11.65 Type 2 diabetes mellitus with hyperglycemia; I10 Essential (primary) hypertension; M70.42 Prepatellar bursitis, left knee; Z20.822 Contact with and (suspected) exposure to COVID-19; Z79.4 Long term (current) use of insulin; Z79.899 Other long term (current) drug therapy
CPT/HCPCS: 36415; 80048; 80053; 82962; 83036; 83605; 83735; 84443; 85025; 85651; 86140; 87040; 87070; 87077; 87147; 87186; 87205; 96374; 99285; G0378; J0295; J0690; J1644; J1815; J7030

== ENCOUNTER 2021-01-23 11:40 | Inpatient (IN) | payer OTHER ==
[~2021-01-23] VITALS: Ht 172.7 cm; Wt 100.4 kg
[~2021-01-23 11:40] MED LIST changes: +AMOX1TAB64 PO; +HYDR-3241 PO; +LISI-170 PO; +ONDA4TAB7 PO
[2021-01-23] MEDS ORDERED: VANCOMYCIN PER PHARMACY MC ONE (13:00)
[2021-01-23] MEDS ORDERED: SODIUM CHLORIDE 0.9% 1,000ML IVBOLUS ONE (13:00)
[2021-01-23] MEDS ORDERED: LIDOCAINE-MPF 1%, 5ML INFIL ONE (13:00)
[2021-01-23] MEDS ORDERED: PHARMACOKINETIC CONSULTATION MC ONE (13:00)
[2021-01-23] MEDS ORDERED: AMPICILLIN/SULBACTAM 3 GM in SODIUM CHLORIDE 0.9% 100 ML IV ONE (13:00)
[2021-01-23] MEDS ORDERED: LIDOCAINE-MPF 1%, 5ML ONE ×2 (13:15→15:20)
[2021-01-23 13:17] LABS: BASOPHILS % (AUTO) 0 % (0-1); EOSINOPHILS % (AUTO) 0 % (1-7); LYMPHOCYTES % (AUTO) 7 % (22-44); MEAN CORPUSCULAR HEMOGLOBIN 29.2 pg (27.5-34.5); MEAN CORPUSCULAR HGB CONC 34.3 g/dL (33.2-36.2); MEAN PLATELET VOLUME 8.5 fL (7.4-10.4); MONOCYTES % (AUTO) 7 % (2-9); NEUTROPHILS % (AUTO) 86 % (42-75); PLATELET COUNT 363 x10^3/uL (130-400); RED BLOOD COUNT 5.38 x10^6/uL (4.38-5.82); RED CELL DISTRIBUTION WIDTH 13.4 % (9.4-14.8)
[2021-01-23 13:42] LABS: ALBUMIN 3.8 g/dL (3.4-5.0); ANION GAP 5 mmol/L (5-15); CALCIUM 9.1 mg/dL (8.5-10.1); CHLORIDE 101 mmol/L (98-107); CREATININE 1.22 mg/dL (0.7-1.3)
[2021-01-23] MEDS ORDERED: VANCOMYCIN 2,200 MG in SODIUM CHLORIDE 0.9% 500 ML IV ONE (14:00)
--- NOTE | 2021-01-23 14:33 | NUR ---
pt resting in bed. at bedside.
[2021-01-23 17:33] VITALS: BP 126/70
[2021-01-23] MEDS: ACETAMINOPHEN 325 MG TABLET PO PRN (18:18)
[2021-01-23] MEDS ORDERED: VANCOMYCIN PER PHARMACY MC PRN (19:00)
[2021-01-23] MEDS ORDERED: morphine SULFATE 10 MG/ML, 1ML IVPush PRN (19:00)
[2021-01-23] MEDS ORDERED: ONDANSETRON 2MG/ML, 2ML IVPush PRN (19:00)
[2021-01-23] MEDS ORDERED: ACETAMINOPHEN 325 MG TABLET PO PRN (19:00)
[2021-01-23] MEDS ORDERED: HYDROcodone/APAP 5/325 TABLET PO PRN (19:00)
[2021-01-23] MEDS ORDERED: DEXTROSE 4 GM TAB.CHEW PO PRN (19:30)
[2021-01-23] MEDS ORDERED: DEXTROSE 50%, 50ML SYRINGE IVPush PRN (19:30)
[2021-01-23] MEDS ORDERED: GLUCAGON 1 MG IM PRN (19:30)
[2021-01-23] MEDS ORDERED: PHARMACOKINETIC MONITORING MC PRN (19:30)
[2021-01-23] MEDS ORDERED: DIPHTHERIA-TETANUS ADULT 0.5ML IM-VACC ONE (19:30)
[2021-01-23] MEDS: INSULIN LISPRO 100 UNITS/ML, PEN SQ-INSULIN SCH (21:00)
[2021-01-23 21:27] VITALS: BP 144/84
[2021-01-23 22:25] VITALS: BP 131/80
[2021-01-23] MEDS: ENOXAPARIN 40 MG/0.4 ML SQ SCH (22:44)
[2021-01-23] MEDS: SODIUM CHLORIDE 0.9% 1,000 ML IV SCH (22:44)
[2021-01-23] MEDS: AMPICILLIN/SULBACTAM 3 GM in SODIUM CHLORIDE 0.9% 100 ML IV SCH (22:44)
[2021-01-23] MEDS: SODIUM CHLORIDE FLUSH 10ML SYR IVF SCH (22:45)
[2021-01-24 02:20] VITALS: BP 117/73
[2021-01-24] MEDS: VANCOMYCIN 1,900 MG in SODIUM CHLORIDE 0.9% 250 ML IV SCH ×2 (02:26→15:22)
[2021-01-24 04:52] LABS: BASOPHILS % (AUTO) 1 % (0-1); EOSINOPHILS % (AUTO) 0 % (1-7); LYMPHOCYTES % (AUTO) 13 % (22-44); MEAN CORPUSCULAR HEMOGLOBIN 29.2 pg (27.5-34.5); MEAN CORPUSCULAR HGB CONC 34.3 g/dL (33.2-36.2); MEAN PLATELET VOLUME 8.6 fL (7.4-10.4); MONOCYTES % (AUTO) 9 % (2-9); NEUTROPHILS % (AUTO) 77 % (42-75); PLATELET COUNT 329 x10^3/uL (130-400); RED BLOOD COUNT 4.62 x10^6/uL (4.38-5.82); RED CELL DISTRIBUTION WIDTH 13.2 % (9.4-14.8)
[2021-01-24] MEDS: AMPICILLIN/SULBACTAM 3 GM in SODIUM CHLORIDE 0.9% 100 ML IV SCH ×4 (05:02→22:52)
[2021-01-24 05:05] LABS: ALBUMIN 2.8 g/dL (3.4-5.0); ANION GAP 8 mmol/L (5-15); CALCIUM 8.1 mg/dL (8.5-10.1); CHLORIDE 105 mmol/L (98-107)
[2021-01-24 05:10] LABS: ALANINE AMINOTRANSFERASE 16 U/L (12-78); ALKALINE PHOSPHATASE 69 U/L (45-117); BILIRUBIN,TOTAL 0.9 mg/dL (0.2-1.0); CREATININE 0.89 mg/dL (0.7-1.3); TOTAL PROTEIN 6.8 g/dL (6.4-8.2)
[2021-01-24 05:25] LABS: MICROSCOPIC AUTO
[2021-01-24 07:14] VITALS: BP 108/64
[2021-01-24] MEDS: INSULIN LISPRO 100 UNITS/ML, PEN SQ-INSULIN SCH ×4 (07:42→21:38)
[2021-01-24] MEDS: SODIUM CHLORIDE 0.9% 1,000 ML IV SCH ×2 (07:42→16:36)
[2021-01-24] MEDS: SODIUM CHLORIDE FLUSH 10ML SYR IVF SCH ×2 (07:44→21:37)
[2021-01-24 12:41] VITALS: BP 116/63
[2021-01-24 19:05] VITALS: BP 110/66
[2021-01-24] MEDS: ACETAMINOPHEN 325 MG TABLET PO PRN (21:38)
[2021-01-24] MEDS: ENOXAPARIN 40 MG/0.4 ML SQ SCH (21:38)
[2021-01-25 00:16] VITALS: BP 114/68
[2021-01-25] MEDS: VANCOMYCIN 1,900 MG in SODIUM CHLORIDE 0.9% 250 ML IV SCH ×2 (02:23→13:31)
[2021-01-25] MEDS: SODIUM CHLORIDE 0.9% 1,000 ML IV SCH (04:48)
[2021-01-25] MEDS: AMPICILLIN/SULBACTAM 3 GM in SODIUM CHLORIDE 0.9% 100 ML IV SCH ×4 (04:48→22:34)
[2021-01-25 05:19] LABS: BASOPHILS % (AUTO) 1 % (0-1); EOSINOPHILS % (AUTO) 3 % (1-7); LYMPHOCYTES % (AUTO) 16 % (22-44); MEAN CORPUSCULAR HEMOGLOBIN 28.9 pg (27.5-34.5); MEAN CORPUSCULAR HGB CONC 33.6 g/dL (33.2-36.2); MEAN PLATELET VOLUME 8.6 fL (7.4-10.4); MONOCYTES % (AUTO) 10 % (2-9); NEUTROPHILS % (AUTO) 71 % (42-75); PLATELET COUNT 348 x10^3/uL (130-400); RED BLOOD COUNT 4.57 x10^6/uL (4.38-5.82)
[2021-01-25 05:30] LABS: ANION GAP 8 mmol/L (5-15); CALCIUM 8.1 mg/dL (8.5-10.1); CHLORIDE 106 mmol/L (98-107); CREATININE 0.72 mg/dL (0.7-1.3)
[2021-01-25] MEDS: INSULIN LISPRO 100 UNITS/ML, PEN SQ-INSULIN SCH ×4 (07:00→22:27)
[2021-01-25 07:35] VITALS: BP 128/71
[2021-01-25] MEDS: SODIUM CHLORIDE FLUSH 10ML SYR IVF SCH ×2 (07:50→22:27)
[2021-01-25] MEDS ORDERED: FENTANYL PF 100 MCG/2ML ONE (07:59)
[2021-01-25] MEDS ORDERED: MIDAZOLAM 1 MG/ML, 2ML ONE (07:59)
[2021-01-25] MEDS ORDERED: OXYcodone 5 MG/5 ML ORAL.SOL UDC PO PRN (08:00)
[2021-01-25] MEDS ORDERED: ALBUTEROL SULFATE 2.5 MG/3 ML NPPB PRN (08:00)
[2021-01-25] MEDS ORDERED: PROMETHAZINE 25 MG/ML, 1ML IVPush PRN (08:00)
[2021-01-25] MEDS ORDERED: MIDAZOLAM 1 MG/ML, 2ML IV PRN (08:00)
[2021-01-25] MEDS ORDERED: MEPERIDINE/PF 25MG/0.5ML IVPush PRN (08:00)
[2021-01-25] MEDS ORDERED: ACETAMINOPHEN 325 MG TABLET PO PRN (08:00)
[2021-01-25] MEDS ORDERED: FENTANYL PF 100 MCG/2ML IV PRN (08:00)
[2021-01-25] MEDS ORDERED: LABETALOL 5MG/ML, 20ML IV PRN (08:00)
[2021-01-25] MEDS ORDERED: CHLORHEXIDINE 15 ML UDC ONE (08:13)
[2021-01-25] MEDS ORDERED: LIDOCAINE-MPF 2% ,5ML ONE ×2 (08:25→09:13)
[2021-01-25] MEDS ORDERED: CEFAZOLIN 1,000 MG ONE (08:25)
[2021-01-25] MEDS ORDERED: ONDANSETRON 2MG/ML, 2ML ONE ×2 (08:25→09:13)
[2021-01-25] MEDS ORDERED: PROPOFOL 10 MG/ML, 20ML ONE ×2 (08:25→09:13)
[2021-01-25] MEDS ORDERED: CHLORHEXIDINE 15 ML UDC PO ONE ×2 (08:30→09:00)
[2021-01-25] MEDS ORDERED: VANCOMYCIN 1,000 MG ONE ×2 (08:47→09:26)
[2021-01-25] MEDS ORDERED: DEXAMETHASONE 4 MG/ML, 1ML ONE (09:13)
[2021-01-25] MEDS ORDERED: PHARMACOKINETIC MONITORING MC PRN (09:30)
[2021-01-25 13:21] VITALS: BP 116/72
[2021-01-25] MEDS ORDERED: DAKIN'S SOLUTION 1/4 STRENGTH 1,000 ML IRRIG SOLN EXT SCH (16:00)
[2021-01-25 18:56] VITALS: BP 131/81
[2021-01-25] MEDS: ENOXAPARIN 40 MG/0.4 ML SQ SCH (22:28)
[2021-01-26 00:20] VITALS: BP 116/70
[2021-01-26] MEDS ORDERED: VANCOMYCIN 2,000 MG in SODIUM CHLORIDE 0.9% 500 ML IV SCH (02:00)
[2021-01-26] MEDS: AMPICILLIN/SULBACTAM 3 GM in SODIUM CHLORIDE 0.9% 100 ML IV SCH ×2 (04:52→10:45)
[2021-01-26 05:07] LABS: BASOPHILS % (AUTO) 1 % (0-1); EOSINOPHILS % (AUTO) 1 % (1-7); LYMPHOCYTES % (AUTO) 18 % (22-44); MEAN CORPUSCULAR HEMOGLOBIN 28.8 pg (27.5-34.5); MEAN CORPUSCULAR HGB CONC 33.8 g/dL (33.2-36.2); MEAN PLATELET VOLUME 8.1 fL (7.4-10.4); MONOCYTES % (AUTO) 8 % (2-9); NEUTROPHILS % (AUTO) 72 % (42-75); PLATELET COUNT 353 x10^3/uL (130-400)
[2021-01-26 05:08] LABS: HCT (SEDRATE) 37.6 % (39.2-51.8)
[2021-01-26 05:20] LABS: ALANINE AMINOTRANSFERASE 16 U/L (12-78); ALBUMIN 2.5 g/dL (3.4-5.0); ANION GAP 5 mmol/L (5-15); CHLORIDE 108 mmol/L (98-107)
[2021-01-26 05:27] LABS: ALKALINE PHOSPHATASE 65 U/L (45-117); BILIRUBIN,TOTAL 0.4 mg/dL (0.2-1.0); CREATININE 0.78 mg/dL (0.7-1.3); TOTAL PROTEIN 6.3 g/dL (6.4-8.2)
[2021-01-26] MEDS: INSULIN LISPRO 100 UNITS/ML, PEN SQ-INSULIN SCH ×4 (07:12→19:59)
[2021-01-26 07:39] VITALS: BP 115/74
[2021-01-26] MEDS: SODIUM CHLORIDE FLUSH 10ML SYR IVF SCH ×2 (10:18→19:59)
[2021-01-26] MEDS: INSULIN GLARGINE 100 UNITS/ML, PEN SQ-INSULIN SCH ×2 (10:21→19:59)
[2021-01-26] MEDS: CEFAZOLIN 2,000 MG in SODIUM CHLORIDE 0.9% 50 ML IV SCH ×2 (12:09→19:59)
[2021-01-26] MEDS: DAKIN'S SOLUTION 1/4 STRENGTH 1,000 ML IRRIG SOLN EXT SCH ×3 (12:47→22:23)
[2021-01-26 13:11] VITALS: BP 125/80
[2021-01-26] MEDS: ENOXAPARIN 40 MG/0.4 ML SQ SCH (19:58)
[2021-01-26 20:06] VITALS: BP 133/79
[2021-01-27 01:12] VITALS: BP 124/75
[2021-01-27] MEDS: CEFAZOLIN 2,000 MG in SODIUM CHLORIDE 0.9% 50 ML IV SCH ×3 (03:53→20:30)
[2021-01-27] MEDS: DAKIN'S SOLUTION 1/4 STRENGTH 1,000 ML IRRIG SOLN EXT SCH ×3 (04:24→15:38)
[2021-01-27 06:30] LABS: BASOPHILS % (AUTO) 1 % (0-1); EOSINOPHILS % (AUTO) 4 % (1-7); LYMPHOCYTES % (AUTO) 21 % (22-44); MEAN CORPUSCULAR HGB CONC 33.8 g/dL (33.2-36.2); MEAN PLATELET VOLUME 8.7 fL (7.4-10.4); MONOCYTES % (AUTO) 8 % (2-9); NEUTROPHILS % (AUTO) 66 % (42-75); PLATELET COUNT 468 x10^3/uL (130-400); RED BLOOD COUNT 4.58 x10^6/uL (4.38-5.82)
[2021-01-27 06:36] LABS: ANION GAP 6 mmol/L (5-15); CALCIUM 8.9 mg/dL (8.5-10.1); CHLORIDE 106 mmol/L (98-107)
[2021-01-27 06:37] LABS: CREATININE 0.96 mg/dL (0.7-1.3)
[2021-01-27] MEDS: INSULIN LISPRO 100 UNITS/ML, PEN SQ-INSULIN SCH ×4 (06:57→21:41)
[2021-01-27 08:05] VITALS: BP 137/82
[2021-01-27] MEDS: SODIUM CHLORIDE FLUSH 10ML SYR IVF SCH ×2 (08:44→21:42)
[2021-01-27] MEDS: INSULIN GLARGINE 100 UNITS/ML, PEN SQ-INSULIN SCH ×2 (08:45→21:40)
[2021-01-27 14:32] VITALS: BP 118/74
[2021-01-27 18:36] VITALS: BP 174/95
[2021-01-27 18:50] VITALS: BP 160/92
[2021-01-27] MEDS: ENOXAPARIN 40 MG/0.4 ML SQ SCH (21:39)
[2021-01-28 00:16] VITALS: BP 151/78
[2021-01-28] MEDS: DAKIN'S SOLUTION 1/4 STRENGTH 1,000 ML IRRIG SOLN EXT SCH ×4 (01:13→23:00)
[2021-01-28] MEDS: CEFAZOLIN 2,000 MG in SODIUM CHLORIDE 0.9% 50 ML IV SCH ×3 (04:43→20:05)
[2021-01-28 06:19] LABS: BASOPHILS % (AUTO) 1 % (0-1); EOSINOPHILS % (AUTO) 3 % (1-7); LYMPHOCYTES % (AUTO) 21 % (22-44); MEAN CORPUSCULAR HEMOGLOBIN 28.5 pg (27.5-34.5); MEAN CORPUSCULAR HGB CONC 33.7 g/dL (33.2-36.2); MONOCYTES % (AUTO) 11 % (2-9); NEUTROPHILS % (AUTO) 64 % (42-75); PLATELET COUNT 475 x10^3/uL (130-400); RED BLOOD COUNT 4.45 x10^6/uL (4.38-5.82); RED CELL DISTRIBUTION WIDTH 12.9 % (9.4-14.8)
[2021-01-28 06:30] LABS: CHLORIDE 104 mmol/L (98-107)
[2021-01-28 06:37] LABS: ALANINE AMINOTRANSFERASE 14 U/L (12-78); ALBUMIN 2.5 g/dL (3.4-5.0); ALKALINE PHOSPHATASE 64 U/L (45-117); ANION GAP 5 mmol/L (5-15); BILIRUBIN,TOTAL 0.4 mg/dL (0.2-1.0); CALCIUM 8.4 mg/dL (8.5-10.1); CREATININE 0.93 mg/dL (0.7-1.3); TOTAL PROTEIN 6.6 g/dL (6.4-8.2)
[2021-01-28] MEDS: INSULIN LISPRO 100 UNITS/ML, PEN SQ-INSULIN SCH ×4 (07:39→20:21)
[2021-01-28] MEDS: SODIUM CHLORIDE FLUSH 10ML SYR IVF SCH ×2 (07:40→20:05)
[2021-01-28 09:20] VITALS: BP 136/84
[2021-01-28] MEDS: INSULIN GLARGINE 100 UNITS/ML, PEN SQ-INSULIN SCH ×2 (09:39→20:20)
[2021-01-28 14:53] VITALS: BP 148/84
[2021-01-28 18:49] VITALS: BP 145/77
[2021-01-28] MEDS: ENOXAPARIN 40 MG/0.4 ML SQ SCH (20:05)
[2021-01-29 00:26] VITALS: BP 137/79
[2021-01-29] MEDS: CEFAZOLIN 2,000 MG in SODIUM CHLORIDE 0.9% 50 ML IV SCH ×3 (04:12→21:47)
[2021-01-29 06:32] LABS: BASOPHILS % (AUTO) 1 % (0-1); EOSINOPHILS % (AUTO) 3 % (1-7); LYMPHOCYTES % (AUTO) 21 % (22-44); MEAN CORPUSCULAR HGB CONC 34.1 g/dL (33.2-36.2); MEAN PLATELET VOLUME 7.8 fL (7.4-10.4); MONOCYTES % (AUTO) 10 % (2-9); NEUTROPHILS % (AUTO) 65 % (42-75); PLATELET COUNT 501 x10^3/uL (130-400); RED BLOOD COUNT 4.55 x10^6/uL (4.38-5.82); RED CELL DISTRIBUTION WIDTH 13.2 % (9.4-14.8)
[2021-01-29 06:47] LABS: ALBUMIN 2.7 g/dL (3.4-5.0); ANION GAP 4 mmol/L (5-15); CALCIUM 8.8 mg/dL (8.5-10.1); CHLORIDE 102 mmol/L (98-107)
[2021-01-29 06:52] LABS: ALANINE AMINOTRANSFERASE 13 U/L (12-78); ALKALINE PHOSPHATASE 66 U/L (45-117); BILIRUBIN,TOTAL 0.2 mg/dL (0.2-1.0); CREATININE 0.96 mg/dL (0.7-1.3); TOTAL PROTEIN 6.9 g/dL (6.4-8.2)
[2021-01-29 07:41] VITALS: BP 152/95
[2021-01-29] MEDS: INSULIN GLARGINE 100 UNITS/ML, PEN SQ-INSULIN SCH ×2 (08:10→21:46)
[2021-01-29] MEDS: INSULIN LISPRO 100 UNITS/ML, PEN SQ-INSULIN SCH ×4 (08:10→21:45)
[2021-01-29] MEDS: SODIUM CHLORIDE FLUSH 10ML SYR IVF SCH ×2 (08:11→21:00)
[2021-01-29 13:12] VITALS: BP 133/83
[2021-01-29] MEDS: DAKIN'S SOLUTION 1/4 STRENGTH 1,000 ML IRRIG SOLN EXT SCH ×2 (15:42→19:27)
[2021-01-29] MEDS ORDERED: SUGAMMADEX 200 MG/2 ML IVPush ONE (17:02)
[2021-01-29] MEDS ORDERED: CEFAZOLIN 1,000 MG ONE (17:02)
[2021-01-29] MEDS ORDERED: FENTANYL PF 100 MCG/2ML ONE (17:02)
[2021-01-29] MEDS ORDERED: MIDAZOLAM 1 MG/ML, 2ML ONE (17:02)
[2021-01-29] MEDS ORDERED: BUPIVACAINE/PF 0.5% ONE (17:02)
[2021-01-29] MEDS ORDERED: ROCURONIUM 10MG/ML,5ML ONE (17:02)
[2021-01-29] MEDS ORDERED: PROPOFOL 10 MG/ML, 20ML ONE (17:02)
[2021-01-29] MEDS ORDERED: SUCCINYLCHOLINE 20 MG/ML, 10ML ONE (17:02)
[2021-01-29] MEDS ORDERED: KETOROLAC 30 MG/1 ML IV PRN (18:00)
[2021-01-29] MEDS ORDERED: LABETALOL 5MG/ML, 20ML IV PRN (18:00)
[2021-01-29] MEDS ORDERED: ONDANSETRON 2MG/ML, 2ML IVPush PRN (18:00)
[2021-01-29] MEDS ORDERED: FENTANYL PF 100 MCG/2ML IV PRN (18:00)
[2021-01-29] MEDS ORDERED: METOCLOPRAMIDE 5 MG/ML, 2ML IV PRN (18:00)
[2021-01-29] MEDS ORDERED: hydrALAzine 20 MG/ML, 1ML IV PRN (18:00)
[2021-01-29] MEDS ORDERED: OXYcodone 5 MG/5 ML ORAL.SOL UDC PO PRN (18:00)
[2021-01-29] MEDS ORDERED: HYDROmorphone 1 MG/ML, 1ML INJ IV PRN (18:00)
[2021-01-29] MEDS ORDERED: PROMETHAZINE 25 MG/ML, 1ML IV PRN (18:00)
[2021-01-29] MEDS ORDERED: DIAZEPAM 5 MG/ML, 2ML IV PRN ×2 (18:00)
[2021-01-29] MEDS ORDERED: ALBUTEROL SULFATE 2.5 MG/3 ML NPPB PRN (18:00)
[2021-01-29] MEDS ORDERED: MEPERIDINE/PF 25MG/0.5ML IVPush PRN (18:00)
[2021-01-29 20:00] VITALS: BP 119/82
[2021-01-29] MEDS: ENOXAPARIN 40 MG/0.4 ML SQ SCH (21:47)
[2021-01-30 01:47] VITALS: BP 146/79
[2021-01-30] MEDS: CEFAZOLIN 2,000 MG in SODIUM CHLORIDE 0.9% 50 ML IV SCH ×3 (04:37→20:13)
[2021-01-30 06:36] VITALS: BP 142/88
[2021-01-30] MEDS: DAKIN'S SOLUTION 1/4 STRENGTH 1,000 ML IRRIG SOLN EXT SCH ×3 (07:32→20:14)
[2021-01-30] MEDS: SODIUM CHLORIDE FLUSH 10ML SYR IVF SCH ×2 (07:41→20:14)
[2021-01-30] MEDS: INSULIN LISPRO 100 UNITS/ML, PEN SQ-INSULIN SCH ×4 (07:42→20:14)
[2021-01-30] MEDS: INSULIN GLARGINE 100 UNITS/ML, PEN SQ-INSULIN SCH ×2 (07:43→20:14)
[2021-01-30 11:04] LABS: BASOPHILS % (AUTO) 1 % (0-1); EOSINOPHILS % (AUTO) 2 % (1-7); LYMPHOCYTES % (AUTO) 24 % (22-44); MEAN CORPUSCULAR HEMOGLOBIN 28.4 pg (27.5-34.5); MEAN CORPUSCULAR HGB CONC 33.4 g/dL (33.2-36.2); MEAN PLATELET VOLUME 7.8 fL (7.4-10.4); MONOCYTES % (AUTO) 8 % (2-9); NEUTROPHILS % (AUTO) 64 % (42-75); PLATELET COUNT 544 x10^3/uL (130-400); RED BLOOD COUNT 4.71 x10^6/uL (4.38-5.82); RED CELL DISTRIBUTION WIDTH 13.5 % (9.4-14.8)
[2021-01-30 11:11] LABS: ANION GAP 7 mmol/L (5-15); CALCIUM 8.8 mg/dL (8.5-10.1); CHLORIDE 103 mmol/L (98-107); CREATININE 0.91 mg/dL (0.7-1.3)
[2021-01-30 13:31] VITALS: BP 136/86
[2021-01-30 18:55] VITALS: BP 143/87
[2021-01-30] MEDS: ENOXAPARIN 40 MG/0.4 ML SQ SCH (20:13)
[2021-01-31 00:52] VITALS: BP 152/93
[2021-01-31] MEDS: CEFAZOLIN 2,000 MG in SODIUM CHLORIDE 0.9% 50 ML IV SCH (04:30)
[2021-01-31 04:46] LABS: BASOPHILS % (AUTO) 0 % (0-1); EOSINOPHILS % (AUTO) 4 % (1-7); LYMPHOCYTES % (AUTO) 32 % (22-44); MEAN CORPUSCULAR HEMOGLOBIN 28.9 pg (27.5-34.5); MEAN PLATELET VOLUME 7.7 fL (7.4-10.4); MONOCYTES % (AUTO) 10 % (2-9); NEUTROPHILS % (AUTO) 54 % (42-75); PLATELET COUNT 521 x10^3/uL (130-400); RED BLOOD COUNT 4.68 x10^6/uL (4.38-5.82); RED CELL DISTRIBUTION WIDTH 13.4 % (9.4-14.8)
[2021-01-31 04:51] LABS: ALBUMIN 2.8 g/dL (3.4-5.0); ANION GAP 6 mmol/L (5-15); CALCIUM 8.7 mg/dL (8.5-10.1); CHLORIDE 105 mmol/L (98-107)
[2021-01-31 04:55] LABS: ALANINE AMINOTRANSFERASE 12 U/L (12-78); ALKALINE PHOSPHATASE 65 U/L (45-117); BILIRUBIN,TOTAL 0.2 mg/dL (0.2-1.0); TOTAL PROTEIN 6.9 g/dL (6.4-8.2)
[2021-01-31 06:28] VITALS: BP 146/86
[2021-01-31] MEDS: INSULIN LISPRO 100 UNITS/ML, PEN SQ-INSULIN SCH ×2 (08:30→12:18)
[2021-01-31] MEDS: INSULIN GLARGINE 100 UNITS/ML, PEN SQ-INSULIN SCH (08:31)
[2021-01-31] MEDS: SODIUM CHLORIDE FLUSH 10ML SYR IVF SCH (08:31)
[2021-01-31] MEDS: DAKIN'S SOLUTION 1/4 STRENGTH 1,000 ML IRRIG SOLN EXT SCH (09:00)
[2021-01-31] MEDS ORDERED: DAPTOMYCIN 600 MG in SODIUM CHLORIDE 0.9% 100 ML IVPB SCH (09:30)
[2021-01-31] MEDS ORDERED: ERTAPENEM 1 GM in SODIUM CHLORIDE 0.9% 50 ML IV SCH (11:00)
[2021-01-31 13:45] VITALS: BP 138/85
[2021-01-31] MEDS ORDERED: INSU100I13 SQ-INSULIN (14:47)
== END 2021-01-31 15:32 | disposition home or self-care (01) | DRG 854 ==
LOC: SUATTDRO 16:54 → ED 17:04 → 3N 17:27 → ED 17:56 → 3N 17:57
PROVIDERS: ADMIT Internal Medicine; ATTEND Hospitalist
PROC: 0JCR0ZZ Extirpation of Matter from Left Foot Subcutaneous Tissue and Fascia, Open Approach (ICD-10-PCS; 2021-01-23)
PROC: 0H9NXZZ Drainage of Left Foot Skin, External Approach (ICD-10-PCS; 2021-01-23)
PROC: 0JBR0ZZ Excision of Left Foot Subcutaneous Tissue and Fascia, Open Approach (ICD-10-PCS; principal; 2021-01-25 09:00)
PROC: 02HV33Z Insertion of Infusion Device into Superior Vena Cava, Percutaneous Approach (ICD-10-PCS; 2021-01-28)
PROC: B5181ZA Fluoroscopy of Superior Vena Cava using Low Osmolar Contrast, Guidance (ICD-10-PCS; 2021-01-28)
PROC: B548ZZA Ultrasonography of Superior Vena Cava, Guidance (ICD-10-PCS; 2021-01-28)
PROC: 0JBR0ZZ Excision of Left Foot Subcutaneous Tissue and Fascia, Open Approach (ICD-10-PCS; 2021-01-29)
DX: A41.9 Sepsis, unspecified organism (principal); L03.116 Cellulitis of left lower limb; E87.1 Hypo-osmolality and hyponatremia; L02.612 Cutaneous abscess of left foot; M86.8X7 Other osteomyelitis, ankle and foot; Z20.822 Contact with and (suspected) exposure to COVID-19; M79.5 Residual foreign body in soft tissue; E11.69 Type 2 diabetes mellitus with other specified complication; B95.61 Methicillin susceptible Staphylococcus aureus infection as the cause of diseases classified elsewhere; B96.1 Klebsiella pneumoniae [K. pneumoniae] as the cause of diseases classified elsewhere; L03.032 Cellulitis of left toe; E11.42 Type 2 diabetes mellitus with diabetic polyneuropathy; B95.4 Other streptococcus as the cause of diseases classified elsewhere; E11.65 Type 2 diabetes mellitus with hyperglycemia; I10 Essential (primary) hypertension; Z79.4 Long term (current) use of insulin; Z83.3 Family history of diabetes mellitus; Z79.899 Other long term (current) drug therapy; Z86.19 Personal history of other infectious and parasitic diseases
CPT/HCPCS: 36415; 73630; 96365; 96375; 99285; J3490; S0020; 36573; 71045; 80048; 80053; 80202; 81001; 82040; 82962; 83036; 83605; 85025; 85651; 86140; 87015; 87040; 87070; 87075; 87076; 87077; 87102; 87116; 87186; 87205; 87206; 87635; 90714; 93306; G0378; J0295; J0690; J1100; J1335; J1650; J2250; J2405; J2704; J3010; J3370; C1751; J0330; J1815; J7030; J7040; J7050

== ENCOUNTER 2021-02-04 14:09 | Outpatient (CLI) | payer OTHER | END 2021-02-04 23:59 | disposition home or self-care (01) | LOC: WOUND 14:09 | PROVIDERS: ATTEND Internal Medicine | DX: E11.621 Type 2 diabetes mellitus with foot ulcer (principal); L97.525 Non-pressure chronic ulcer of other part of left foot with muscle involvement without evidence of necrosis; E11.622 Type 2 diabetes mellitus with other skin ulcer; L97.222 Non-pressure chronic ulcer of left calf with fat layer exposed; L03.116 Cellulitis of left lower limb; I11.0 Hypertensive heart disease with heart failure; I50.9 Heart failure, unspecified; E11.69 Type 2 diabetes mellitus with other specified complication; M86.172 Other acute osteomyelitis, left ankle and foot; E11.42 Type 2 diabetes mellitus with diabetic polyneuropathy; M70.42 Prepatellar bursitis, left knee; L84 Corns and callosities; A41.9 Sepsis, unspecified organism; A49.01 Methicillin susceptible Staphylococcus aureus infection, unspecified site; Z86.19 Personal history of other infectious and parasitic diseases; Z79.4 Long term (current) use of insulin; Z79.899 Other long term (current) drug therapy; Z20.822 Contact with and (suspected) exposure to COVID-19 | CPT/HCPCS: 11043; 99213 ==

== ENCOUNTER 2021-02-05 10:52 | Outpatient (CLI) | payer OTHER | END 2021-02-05 23:59 | disposition home or self-care (01) | LOC: RAD 10:52 | PROVIDERS: ATTEND Internal Medicine Infectious Disease | DX: Z02.9 Encounter for administrative examinations, unspecified (principal) ==

== ENCOUNTER 2021-02-11 13:03 | Outpatient (CLI) | payer OTHER | END 2021-02-11 23:59 | disposition home or self-care (01) | LOC: WOUND 13:03 | PROVIDERS: ATTEND Surgery | DX: E11.621 Type 2 diabetes mellitus with foot ulcer (principal); L97.525 Non-pressure chronic ulcer of other part of left foot with muscle involvement without evidence of necrosis; E11.622 Type 2 diabetes mellitus with other skin ulcer; L97.222 Non-pressure chronic ulcer of left calf with fat layer exposed; A41.9 Sepsis, unspecified organism; L03.116 Cellulitis of left lower limb; E11.69 Type 2 diabetes mellitus with other specified complication; M86.172 Other acute osteomyelitis, left ankle and foot; E11.42 Type 2 diabetes mellitus with diabetic polyneuropathy; I11.0 Hypertensive heart disease with heart failure; I50.9 Heart failure, unspecified; M70.42 Prepatellar bursitis, left knee; L84 Corns and callosities; A49.01 Methicillin susceptible Staphylococcus aureus infection, unspecified site; Z79.4 Long term (current) use of insulin; Z79.899 Other long term (current) drug therapy; Z20.822 Contact with and (suspected) exposure to COVID-19; Z86.19 Personal history of other infectious and parasitic diseases | CPT/HCPCS: 11043 ==

== ENCOUNTER 2021-02-18 08:39 | Outpatient (CLI) | payer OTHER | END 2021-02-18 23:59 | disposition home or self-care (01) | LOC: WOUND 08:39 | PROVIDERS: ATTEND Surgery | DX: E11.621 Type 2 diabetes mellitus with foot ulcer (principal); L97.525 Non-pressure chronic ulcer of other part of left foot with muscle involvement without evidence of necrosis; L97.222 Non-pressure chronic ulcer of left calf with fat layer exposed; E11.622 Type 2 diabetes mellitus with other skin ulcer; L03.116 Cellulitis of left lower limb; E11.69 Type 2 diabetes mellitus with other specified complication; M86.172 Other acute osteomyelitis, left ankle and foot; E11.42 Type 2 diabetes mellitus with diabetic polyneuropathy; L84 Corns and callosities; A49.01 Methicillin susceptible Staphylococcus aureus infection, unspecified site; I11.0 Hypertensive heart disease with heart failure; I50.9 Heart failure, unspecified; A41.9 Sepsis, unspecified organism; M70.42 Prepatellar bursitis, left knee; Z79.4 Long term (current) use of insulin; Z79.899 Other long term (current) drug therapy; Z20.822 Contact with and (suspected) exposure to COVID-19; Z86.19 Personal history of other infectious and parasitic diseases | CPT/HCPCS: 97597 ==

== ENCOUNTER 2021-02-25 12:42 | Outpatient (CLI) | payer OTHER | END 2021-02-25 23:59 | disposition home or self-care (01) | LOC: WOUND 12:42 | PROVIDERS: ATTEND Internal Medicine | DX: E11.621 Type 2 diabetes mellitus with foot ulcer (principal); L97.525 Non-pressure chronic ulcer of other part of left foot with muscle involvement without evidence of necrosis; I10 Essential (primary) hypertension; E11.69 Type 2 diabetes mellitus with other specified complication; M86.8X7 Other osteomyelitis, ankle and foot; E11.42 Type 2 diabetes mellitus with diabetic polyneuropathy; L84 Corns and callosities; A49.01 Methicillin susceptible Staphylococcus aureus infection, unspecified site; Z79.4 Long term (current) use of insulin; Z79.899 Other long term (current) drug therapy; Z20.822 Contact with and (suspected) exposure to COVID-19 | CPT/HCPCS: 15275; Q4101 ==

== ENCOUNTER 2021-03-06 14:16 | Outpatient (CLI) | payer OTHER | END 2021-03-06 23:59 | disposition home or self-care (01) | LOC: WOUND 14:16 | PROVIDERS: ATTEND Internal Medicine | DX: E11.621 Type 2 diabetes mellitus with foot ulcer (principal); L97.525 Non-pressure chronic ulcer of other part of left foot with muscle involvement without evidence of necrosis; E11.69 Type 2 diabetes mellitus with other specified complication; M86.172 Other acute osteomyelitis, left ankle and foot; E11.42 Type 2 diabetes mellitus with diabetic polyneuropathy; L84 Corns and callosities; A49.01 Methicillin susceptible Staphylococcus aureus infection, unspecified site; I11.0 Hypertensive heart disease with heart failure; I50.9 Heart failure, unspecified; Z79.4 Long term (current) use of insulin; Z79.899 Other long term (current) drug therapy; Z20.822 Contact with and (suspected) exposure to COVID-19 | CPT/HCPCS: 15275; Q4101 ==

== ENCOUNTER 2021-03-08 14:18 | Outpatient (CLI) | payer OTHER | END 2021-03-08 23:59 | disposition home or self-care (01) | LOC: WOUND 14:18 | PROVIDERS: ATTEND Internal Medicine | DX: E11.621 Type 2 diabetes mellitus with foot ulcer (principal); L97.525 Non-pressure chronic ulcer of other part of left foot with muscle involvement without evidence of necrosis; E11.622 Type 2 diabetes mellitus with other skin ulcer; L97.222 Non-pressure chronic ulcer of left calf with fat layer exposed; L03.116 Cellulitis of left lower limb; E11.69 Type 2 diabetes mellitus with other specified complication; M86.172 Other acute osteomyelitis, left ankle and foot; E11.42 Type 2 diabetes mellitus with diabetic polyneuropathy; L84 Corns and callosities; A49.01 Methicillin susceptible Staphylococcus aureus infection, unspecified site; I11.0 Hypertensive heart disease with heart failure; I50.9 Heart failure, unspecified; A41.9 Sepsis, unspecified organism; M70.42 Prepatellar bursitis, left knee; Z79.4 Long term (current) use of insulin; Z79.899 Other long term (current) drug therapy; Z20.822 Contact with and (suspected) exposure to COVID-19; Z86.19 Personal history of other infectious and parasitic diseases | CPT/HCPCS: 97605 ==

== ENCOUNTER 2021-03-15 14:18 | Outpatient (CLI) | payer OTHER | END 2021-03-15 23:59 | disposition home or self-care (01) | LOC: WOUND 14:18 | PROVIDERS: ATTEND Internal Medicine | DX: E11.621 Type 2 diabetes mellitus with foot ulcer (principal); L97.525 Non-pressure chronic ulcer of other part of left foot with muscle involvement without evidence of necrosis; E11.622 Type 2 diabetes mellitus with other skin ulcer; L97.222 Non-pressure chronic ulcer of left calf with fat layer exposed; L03.116 Cellulitis of left lower limb; E11.69 Type 2 diabetes mellitus with other specified complication; M86.172 Other acute osteomyelitis, left ankle and foot; E11.42 Type 2 diabetes mellitus with diabetic polyneuropathy; L84 Corns and callosities; A49.01 Methicillin susceptible Staphylococcus aureus infection, unspecified site; I11.0 Hypertensive heart disease with heart failure; I50.9 Heart failure, unspecified; A41.9 Sepsis, unspecified organism; M70.42 Prepatellar bursitis, left knee; Z79.4 Long term (current) use of insulin; Z79.899 Other long term (current) drug therapy; Z20.822 Contact with and (suspected) exposure to COVID-19; Z86.19 Personal history of other infectious and parasitic diseases | CPT/HCPCS: 15275; Q4101 ==

== ENCOUNTER → 2021-03-22 | Outpatient (CLI) | payer OTHER | END | disposition home or self-care (01) | LOC: WOUND 14:33 | PROVIDERS: ATTEND Internal Medicine | DX: E11.621 Type 2 diabetes mellitus with foot ulcer (principal); L97.525 Non-pressure chronic ulcer of other part of left foot with muscle involvement without evidence of necrosis; E11.622 Type 2 diabetes mellitus with other skin ulcer; L97.222 Non-pressure chronic ulcer of left calf with fat layer exposed; L03.116 Cellulitis of left lower limb; E11.69 Type 2 diabetes mellitus with other specified complication; M86.172 Other acute osteomyelitis, left ankle and foot; E11.42 Type 2 diabetes mellitus with diabetic polyneuropathy; L84 Corns and callosities; A49.01 Methicillin susceptible Staphylococcus aureus infection, unspecified site; I11.0 Hypertensive heart disease with heart failure; I50.9 Heart failure, unspecified; A41.9 Sepsis, unspecified organism; M70.42 Prepatellar bursitis, left knee; Z79.4 Long term (current) use of insulin; Z79.899 Other long term (current) drug therapy; Z20.822 Contact with and (suspected) exposure to COVID-19; Z86.19 Personal history of other infectious and parasitic diseases | CPT/HCPCS: 15275; Q4101 ==